=== PATIENT | female | born 1970 | race Caucasian/White ===

== ENCOUNTER → 2016-04-27 | Outpatient (CLI) | payer BC | LOC: RT 13:05 | PROVIDERS: ATTEND Family Medicine | DX: R06.09 Other forms of dyspnea (principal) | CPT/HCPCS: 94060 ==

== ENCOUNTER → 2016-04-29 | Outpatient (REF) | payer BC | LOC: LAB 09:31 | PROVIDERS: ATTEND Family Medicine | DX: R06.00 Dyspnea, unspecified (principal) | CPT/HCPCS: 85379 ==